=== PATIENT | female | born 1950 | race Caucasian/White ===

== ENCOUNTER → 2017-11-09 | Day surgery (SDC) | payer MEDICARE, OTHER ==
[2017-11-08 14:40] LABS: BASOPHILS % 0.5 % (0.0-1.0); EOSINOPHILS # (AUTO) 0.2 (0.0-0.4); EOSINOPHILS % 3.2 % (0.0-6.0); HEMATOCRIT 38.6 % (34.2-44.1); HEMOGLOBIN 13.2 g/dL (12.0-16.0); LYMPHOCYTES # (AUTO) 1.8 (1.0-3.2); LYMPHOCYTES % 27.1 % (18.0-39.1); MEAN CORPUSCULAR HGB CONC 34.2 g/dL (31-35); MEAN CORPUSCULAR VOLUME 102.4 fL (81-99); MONOCYTES # (AUTO) 0.5 (0.2-0.8); MONOCYTES % 7.1 % (4.4-11.3); NEUTROPHILS # (AUTO) 4.1 (2.1-6.9); NEUTROPHILS % 61.9 % (38.7-80.0); PLATELET COUNT 212 x10e3/uL (140-360); RED BLOOD COUNT 3.77 x10e6/uL (3.6-5.1)
[~2017-11-09] MED LIST: ALPRAZOLAM0.5 MG PO; AMLODIPINE BESYL5 MG PO; FENTANYL CITRATE/PF 100MCG/2 ML INJ ONE; LEVOTHYROXINE150 MCG PO; MIDAZOLAM HCL 2 MG/2 ML VIAL ONE; NORCO 7.5-3251 EACH PO; PROPOFOL IV EMULSION 10 MG/ML 50 ML VIAL ONE
--- OUTSIDE RECORDS SUMMARY | 2017-11-09 09:17 | XMS REPORT | Clinical Summary ---
Author Author [facility] Organization [facility] Address Unknown Phone Unavailable Care Team Providers Care Agricultural Specialist Name Role Phone Gamaliel Kelly MD PCP Allergies Active Allergy Reactions Severity Noted Date Comments Hydrocodone-Acetaminophen Itching 12/21/2016 Current Medications Prescription Sig. Disp. Refills Start End Date Status Date pregabalin (LYRICA) 150 Take 150 mg by mouth 2 Active MG capsule (two) times a day. HYDROcodone-acetaminophen Take 1 tablet by mouth Active (NORCO) 7.5-325 mg per every 6 (six) hours as tablet needed for moderate pain. levothyroxine (SYNTHROID, Take 150 mcg by mouth Active LEVOXYL) 150 mcg tablet every morning. lidocaine (LIDODERM) 5 % Place 1 patch on the skin Active daily. 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 Encounters Date Type Specialty Care Team Description 12/21/2016 Office Visit Orthopedic Surgery Nitin Ambrocio MD Chronic pain of both shoulders (Primary Dx); Status post total replacement of left shoulder; Rotator cuff insufficiency of right shoulder after 11/08/2016 Family History Medical History Relation Name Comments Heart disease Father Cancer Mother Relation Name Status Comments Father Mother Social History Tobacco Use Types Packs/Day Years Used Date Never Smoker Alcohol Use Drinks/Week oz/Week Comments Yes occasionally Sex Assigned at Date Recorded Not on file Last Filed Vital Signs Vital Sign Reading Time Taken Blood Pressure - - Pulse - - Temperature - - Respiratory Rate - - Oxygen Saturation - - Inhaled Oxygen - - Concentration Weight 81.6 kg (180 lb) 12/21/2016 2:38 PM CDT Height 152.4 cm (5') 12/21/2016 2:38 PM CDT Body Mass Index 35.15 12/21/2016 2:38 PM CDT Plan of Treatment Health Maintenance Due Date Last Done Comments COLONOSCOPY 2001 MAMMOGRAM 2001 ZOSTER VACCINE 2011 PNEUMOCOCCAL 2016 POLYSACCHARIDE VACCINE AGE 65 AND OVER PNEUMOCOCCAL-13 2016 INFLUENZA VACCINE 03/22/2017 Results * XR Shoulders Bilateral (12/21/2016 3:00 PM) Specimen Performing Laboratory [facility] [address] [place] [address] Narrative Three-view x-ray of the right shoulder: There are metallic surgical anchors in the humeral tuberosity and in proximity to the bicipital groove compatible with a probable rotator cuff repair and possibly a biceps tenodesis. There is a two-view x-ray of the left shoulder: This shows a uncemented short stem total shoulder replacement with no clear evidence of loosening or failure after 11/08/2016 Insurance Payer Benefit Subscriber ID Type Phone Address Plan / Group MEDICARE MEDICARE xxxxxxxxxx Medicare [place], [place] PART A AND B INTL MISCELLANEOUS INS MISC xxxxxxxxxx [place] [address]
--- NOTE | 2017-11-09 13:52 | Operative Report ---
DATE OF PROCEDURE: November 09, 2017 REFERRING PHYSICIAN: Dr. Teto Hernandez. PROCEDURE PERFORMED: 1. Esophagogastroduodenoscopy with esophageal dilatation. 2. Colonoscopy with polypectomy. INDICATIONS FOR ESOPHAGOGASTRODUODENOSCOPY: Dysphagia, nausea and vomiting. INDICATIONS FOR COLONOSCOPY: Colorectal cancer screening. Personal history of colon polyps. MEDICATION: Patient was done under MAC. Please see anesthesiologist's note. PROCEDURE: With the patient in the left lateral decubitus position, the flexible fiberoptic Olympus gastroscope was introduced into the esophagus under direct visualization without any difficulty. The esophagus appeared to be within normal limits. There was a mild stricture noted at the GE junction, and that was dilated to size 52-[place] Cadet. The scope was then advanced with ease into the stomach, traversing a small sliding hiatal hernia. Patient appears to be status post Axel-en-Y. Anastomosis was intact, and the enteric loop was patent. The scope was then retroflexed, and the mucosa overlying the fundus and the cardia appeared to be within normal limits. The scope was then straightened out. It was subsequently withdrawn. Patient tolerated the procedure well. IMPRESSION: 1. Normal esophagus. 2. Esophageal stricture at gastroesophageal junction dilated to size 52-[place] Cadet. 3. Small sliding hiatal hernia. 4. Status post Axel-en-Y, anastomosis intact. PLAN: Initiate Protonix 40 mg 1 p.o. q.a.m. a.c. Patient was then turned around and after adequate lubrication of the anal canal, a flexible fiberoptic Olympus colonoscope was inserted into the rectum with ease and advanced all the way to the cecum. It was then withdrawn slowly. Mucosa overlying the cecum, ascending colon, transverse colon and descending colon appeared to be within normal limits. Two polyps were snared from the sigmoid colon. The rectum appeared to be within normal limits. The scope was then retroflexed into the distal rectum and small internal hemorrhoids were noted, none of which was actively bleeding. The scope was then straightened out. It was subsequently withdrawn. Patient tolerated the procedure well. IMPRESSION: 1. Sigmoid colon polyps snared times 2. 2. Internal hemorrhoids, none actively bleeding. PLAN: Follow up histology. Initiate high-fiber low-fat diet. Initiate high-fiber supplement. Patient will need a followup colonoscopy in 3 years. Job#: [id number] EV cc:TETO HERNANDEZ MD
== END | disposition home or self-care (01) ==
LOC: OR 09:16
PROVIDERS: ATTEND Internal Medicine Gastroenterology
DX: Z12.11 Encounter for screening for malignant neoplasm of colon (principal); K63.5 Polyp of colon; K22.2 Esophageal obstruction; K44.9 Diaphragmatic hernia without obstruction or gangrene; R19.7 Diarrhea, unspecified; R10.30 Lower abdominal pain, unspecified; R19.4 Change in bowel habit; Z98.84 Bariatric surgery status; R11.2 Nausea with vomiting, unspecified; I10 Essential (primary) hypertension; E03.9 Hypothyroidism, unspecified; Z01.810 Encounter for preprocedural cardiovascular examination; Z01.812 Encounter for preprocedural laboratory examination; Z68.34 Body mass index [BMI] 34.0-34.9, adult; Z80.0 Family history of malignant neoplasm of digestive organs
CPT/HCPCS: 36415; 43235; 43450; 45385; 85025; 93005; J2250; 45378

== ENCOUNTER → 2017-12-05 | Outpatient (CLI) | payer MEDICARE, OTHER ==
[~2017-12-05] MED LIST changes: -FENTANYL CITRATE/PF 100MCG/2 ML INJ ONE; -MIDAZOLAM HCL 2 MG/2 ML VIAL ONE; -PROPOFOL IV EMULSION 10 MG/ML 50 ML VIAL ONE
--- NOTE | 2017-12-05 15:33 | Diagnostic Imaging Report ---
PROCEDURE: Frontal and lateral views of the chest. COMPARISON: Chest radiograph 03/11/2014 INDICATIONS: COUGH FINDINGS: Lines/tubes: None. Lungs: The lungs are well inflated and clear. There is no evidence of pneumonia or pulmonary edema. Pleura: There is no pleural effusion or pneumothorax. Heart and mediastinum: Aortic calcifications. The heart and the mediastinum are otherwise normal. Bones: No acute bony abnormality. Left shoulder prosthesis. Widened left acromioclavicular and coracoclavicular intervals from prior AC joint injury. Rotator cuff repair anchors overlie the right humeral head. Upper abdomen: Cholecystectomy clips. No free air under the diaphragm. IMPRESSION: No acute cardiopulmonary disease. Dictated by: Nicholas Spring M.D. on 12/05/2017 at 15:35 Electronically approved by: Nicholas Spring M.D. on 12/05/2017 at 15:35
== END ==
LOC: RAD 14:45
PROVIDERS: ATTEND Internal Medicine
DX: R05 Cough (principal)
CPT/HCPCS: 71046

== ENCOUNTER → 2019-05-02 | Outpatient (CLI) | payer MEDICARE, OTHER ==
[~2019-05-02] MED LIST changes: +DIATRIZOATE MEGL/DIATRIZOA SOD 30 ML BTL PO ONE; +IOPAMIDOL 370 MG/ML 200 ML INFUS..BTL INJ ONE; +SODIUM CHLORIDE 0.9% 50ML 50 ML ONE
[2019-05-02 17:17] LABS: BLOOD UREA NITROGEN 10 mg/dL (7-26); BUN/CREATININE RATIO 13 (6-25); CREATININE, SERUM 0.77 mg/dL (0.57-1.11); EST GLOMERULAR FILTRATION RATE > 60 ML/MIN (60-)
--- NOTE | 2019-05-02 19:02 | Diagnostic Imaging Report ---
ADDENDUM #1 Addendum: Left anterior ventral hernia containing part of the transverse colon, which is nondilated. The neck, measures 2.9 cm. No fluid collections or fat stranding within the herniated sac. Dr. Choi is aware of this hernia. Signed by: Dr. Yaima Madrigal M.D. on 05/15/2019 3:32 PM ORIGINAL REPORT EXAM: CT Abdomen and Pelvis WITH contrast INDICATION: ^[id number] ^1700 ^NON PALPABLE VENTAL HERNIA COMPARISON: None. TECHNIQUE: Abdomen and pelvis were scanned utilizing a multidetector helical scanner from the lung base to the pubic symphysis after administration of IV contrast. Coronal and sagittal reformations were obtained. Routine protocol was performed. Scan was performed when during portal venous phase. IV CONTRAST: 100 mL of Isovue-370 ORAL CONTRAST: Gastrografin RADIATION DOSE: Total DLP: 335.2 mGy*cm Estimated effective dose: (DLP x 0.015 x size factor) mSv COMPLICATIONS: None FINDINGS: LINES and TUBES: None. LOWER THORAX: 3 mm solid nodule in the right middle lobe is nonspecific and if patient is low risk, no further follow-up is needed. If high risk, an optional CT chest without contrast in 12 months can be obtained. HEPATOBILIARY: No focal hepatic lesions. No intrahepatic biliary ductal dilation. GALLBLADDER: Cholecystectomy. Moderate dilatation of the common bile duct measuring 1.3 cm without visualized calcified stone or masses may relate to the prior cholecystectomy. SPLEEN: No splenomegaly. PANCREAS: No focal masses or ductal dilatation. ADRENALS: No adrenal nodules KIDNEYS/URETERS: Kidneys enhance symmetrically. No hydronephrosis. No cystic or solid mass lesions. No stones. GI TRACT: Postsurgical changes within the distal stomach at the gastroesophageal junction. The stomach is decompressed. No abnormal distention, wall thickening, or evidence of bowel obstruction. Appendix is nonvisualized. PELVIC ORGANS/BLADDER: Unremarkable. LYMPH NODES: No lymphadenopathy. VESSELS: Unremarkable. PERITONEUM / RETROPERITONEUM: No free air or fluid. BONES: Grade 1 anterolisthesis of L4 over L5. Moderate degenerative changes at L5-S1. SOFT TISSUES: Small tubular shape umbilical hernia measuring 4.4 cm in length x 0.9 cm in transverse diameter containing small amount of fluid but no bowel. This is better seen on sagittal image 71. Inferior and to the left of the small hernia, there is a 0.9 cm calcified soft tissue nodule in the subcutaneous fat of the anterior abdominal wall suggestive of fatty process. IMPRESSION: Small umbilical hernia containing a small amount of fluid but no inflammatory changes or bowel. Signed by: Dr. Yaima Madrigal M.D. on 05/02/2019 6:58 PM
== END ==
LOC: CT 16:14
PROVIDERS: ATTEND Surgery
DX: K43.9 Ventral hernia without obstruction or gangrene (principal)
CPT/HCPCS: 36415; 74177; 82565; 84520; Q9967

== ENCOUNTER → 2019-10-03 | Outpatient (CLI) | payer MEDICARE, OTHER ==
[~2019-10-03] MED LIST changes: -DIATRIZOATE MEGL/DIATRIZOA SOD 30 ML BTL PO ONE; -IOPAMIDOL 370 MG/ML 200 ML INFUS..BTL INJ ONE; -SODIUM CHLORIDE 0.9% 50ML 50 ML ONE
--- NOTE | 2019-10-03 13:26 | Diagnostic Imaging Report ---
Exam: Thyroid ultrasound Clinical History: Hypothyroidism Findings: Transverse and longitudinal images of the thyroid gland were obtained. The right and the left lobe measured 3.0 x 0.8 x 0.9 cm and 2.5 x 0.9 x 1.2 cm respectively. The isthmus measured 2 mm in thickness. The thyroid gland is diffusely atrophic and heterogeneous in echotexture. Normal appearing lymph nodes are noted in bilateral internal jugular chains likely reactive in nature. Impression: 1. Heterogeneous atrophic thyroid gland likely due to postinflammatory changes. Signed by: Dr. Tadeo Arango MD on 10/03/2019 1:23 PM
== END ==
LOC: US 12:00
PROVIDERS: ATTEND Internal Medicine
DX: E04.9 Nontoxic goiter, unspecified (principal)
CPT/HCPCS: 76536